=== PATIENT | female | born 1980 | race Two or more races ===

== ENCOUNTER 2019-08-24 13:44 | Emergency (ER) | payer MEDICAID ==
[~2019-08-24] VITALS: Ht 157.5 cm; Wt 113.0 kg
[2019-08-24 13:55] VITALS: BP 129/95
[2019-08-24 15:52] LABS: CHLORIDE 105 mEq/L (98-107)
[2019-08-24 16:21] LABS: HCG SCREEN NEGATIVE
[2019-08-24 17:22] LABS: BASOPHILS % 0.5 % (0.0-2.0); HEMATOCRIT. 40.8 % (36.0-48.0); HEMOGLOBIN. 13.5 g/dL (12.0-16.0); LYMPHOCYTES % 16.7 % (20.0-50.0); MEAN CORPUSCULAR HEMOGLOBIN 26.1 pg (28.0-32.0); MEAN CORPUSCULAR VOLUME 78.7 fL (81.0-99.0); MEAN PLATELET VOLUME 9.2 fl (7.4-10.4); MONOCYTES % 7.3 % (2.0-8.0); NEUTROPHILS % 72.5 % (40.0-76.0); PLATELET 287 x1000/uL (130-400); RED BLOOD CELL COUNT 5.18 mill/uL (4.2-5.4)
[2019-08-24 18:54] LABS: CLARITY URINE CLEAR (CLEAR); COLOR URINE YELLOW (YELLOW); KETONES URINE NEGATIVE (NEGATIVE); LEUKOCYTE ESTERASE URINE NEGATIVE (NEGATIVE); NITRITE URINE NEGATIVE (NEGATIVE); OCCULT BLOOD URINE NEGATIVE (NEGATIVE); PROTEIN URINE NEGATIVE (NEGATIVE); SPECIFIC GRAVITY URINE 1.022 (1.005-1.030); UROBILINOGEN URINE 0.2 E.U./dL (0.2-1.0)
== END 2019-08-24 19:16 | disposition home or self-care (01) ==
LOC: ER 13:44
DX: R10.31 Right lower quadrant pain (principal); Z98.890 Other specified postprocedural states
CPT/HCPCS: 36415; 74176; 76830; 76856; 80053; 81003; 81025; 84703; 85025; 99285

== ENCOUNTER 2020-02-14 21:23 | Emergency (ER) | payer MEDICAID, SELFPAY ==
[~2020-02-14] VITALS: Ht 162.6 cm; Wt 91.0 kg
[2020-02-14] MEDS ORDERED: MORPHINE SULFATE 2 MG/ML CPJ (NOT FOR IM USE) IV ONE (22:30)
[2020-02-14] MEDS ORDERED: ONDANSETRON HCL 4MG/2ML INJ IV ONE (22:30)
[2020-02-14] MEDS ORDERED: SODIUM CHLORIDE 0.9% 1,000 ML IV ONE (22:30)
[2020-02-14 22:57] LABS: BASOPHILS % 0.9 % (0.0-2.0); EOSINOPHILS % 4.9 % (0.0-5.0); HEMATOCRIT. 40.1 % (36.0-48.0); HEMOGLOBIN. 13.1 g/dL (12.0-16.0); LYMPHOCYTES % 26.6 % (20.0-50.0); MEAN CORPUSCULAR HEMOGLOBIN 26.2 pg (28.0-32.0); MEAN CORPUSCULAR VOLUME 79.9 fL (81.0-99.0); MEAN PLATELET VOLUME 9.3 fl (7.4-10.4); MONOCYTES % 8.7 % (2.0-8.0); NEUTROPHILS % 58.9 % (40.0-76.0); PLATELET 236 x1000/uL (130-400); RED BLOOD CELL COUNT 5.03 mill/uL (4.2-5.4); RED CELL DISTRIBUTION WIDTH 15.6 % (11.6-14.6)
[2020-02-14 23:03] VITALS: BP 136/87
[2020-02-14 23:04] LABS: CHLORIDE 107 mEq/L (98-107)
[2020-02-14 23:15] LABS: HCG SCREEN NEGATIVE
== END 2020-02-15 02:09 | disposition home or self-care (01) ==
LOC: ER 21:23
DX: R51.9 Headache, unspecified (principal); R11.2 Nausea with vomiting, unspecified; F17.290 Nicotine dependence, other tobacco product, uncomplicated; Z20.828 Contact with and (suspected) exposure to other viral communicable diseases; Z98.890 Other specified postprocedural states
CPT/HCPCS: 36415; 71045; 80053; 81025; 83690; 83880; 84484; 84703; 85025; 87635; 96361; 96374; 96375; 99284; 99406; C9803; J2270; J2405; J7030

== ENCOUNTER 2020-04-29 12:33 | Emergency (ER) | payer SELFPAY ==
[~2020-04-29] VITALS: Ht 165.1 cm; Wt 70.0 kg
[2020-04-29 12:56] VITALS: BP 126/79
[2020-04-29] MEDS ORDERED: ALBU6.7H9 INH (13:02)
== END 2020-04-29 13:21 | disposition home or self-care (01) ==
LOC: ER 12:33
DX: U07.1 COVID-19 (principal)
CPT/HCPCS: 87635; 99283; C9803; 99281

== ENCOUNTER 2021-01-29 08:36 | Emergency (ER) | payer MEDICAID, OTHER ==
[~2021-01-29] VITALS: Ht 162.6 cm; Wt 96.0 kg
[~2021-01-29 08:36] MED LIST: ALBU6.7H9 INH
[2021-01-29] MEDS ORDERED: KETOROLAC 30MG/ML VIAL IV ONE (09:00)
[2021-01-29 09:28] LABS: BASOPHILS % 0.4 % (0.0-2.0); EOSINOPHILS % 2.6 % (0.0-5.0); HEMATOCRIT. 37.3 % (36.0-48.0); HEMOGLOBIN. 12.4 g/dL (12.0-16.0); MEAN CORPUSCULAR HEMOGLOBIN 25.9 pg (28.0-32.0); MEAN CORPUSCULAR VOLUME 77.8 fL (81.0-99.0); MEAN PLATELET VOLUME 8.5 fl (7.4-10.4); MONOCYTES % 6.5 % (2.0-8.0); NEUTROPHILS % 68.5 % (40.0-76.0); PLATELET 267 x1000/uL (130-400); RED CELL DISTRIBUTION WIDTH 15.1 % (11.6-14.6)
[2021-01-29 09:32] LABS: CHLORIDE 107 mEq/L (98-107)
[2021-01-29 09:36] LABS: CLARITY URINE CLEAR (CLEAR); COLOR URINE YELLOW (YELLOW); KETONES URINE NEGATIVE (NEGATIVE); LEUKOCYTE ESTERASE URINE NEGATIVE (NEGATIVE); NITRITE URINE NEGATIVE (NEGATIVE); OCCULT BLOOD URINE 3+ (NEGATIVE); PH URINE 5.5 (4.5-8.0); PROTEIN URINE NEGATIVE (NEGATIVE); SPECIFIC GRAVITY URINE 1.025 (1.005-1.030); UROBILINOGEN URINE 0.2 E.U./dL (0.2-1.0)
[2021-01-29] MEDS ORDERED: ONDA4TAB5 PO (10:16)
[2021-01-29] MEDS ORDERED: TOPUD PO (10:16)
[2021-01-29 10:37] VITALS: BP 114/75
== END 2021-01-29 10:38 | disposition home or self-care (01) ==
LOC: ER 08:36
DX: R10.13 Epigastric pain (principal); Z98.890 Other specified postprocedural states
CPT/HCPCS: 36415; 76700; 80053; 81003; 83690; 85025; 93005; 96374; 99285; J1885

== ENCOUNTER 2021-04-23 11:25 | Emergency (ER) | payer SELFPAY ==
[~2021-04-23] VITALS: Ht 167.6 cm; Wt 100.0 kg
[~2021-04-23 11:25] MED LIST changes: +ONDA4TAB5 PO; +TOPUD PO
[2021-04-23] MEDS ORDERED: IBUPROFEN 600MG TABLET PO ONE (11:45)
[2021-04-23] MEDS ORDERED: KETOROLAC 30MG/ML VIAL IV STA (13:12)
[2021-04-23] MEDS ORDERED: SODIUM CHLORIDE 0.9% 1,000 ML IV ONE (13:15)
[2021-04-23 13:24] LABS: BASOPHILS % 0.5 % (0.0-2.0); EOSINOPHILS % 3.3 % (0.0-5.0); HEMATOCRIT. 39.5 % (36.0-48.0); HEMOGLOBIN. 13.2 g/dL (12.0-16.0); LYMPHOCYTES % 18.4 % (20.0-50.0); MEAN CORPUSCULAR HEMOGLOBIN 26.6 pg (28.0-32.0); MEAN CORPUSCULAR VOLUME 79.6 fL (81.0-99.0); MEAN PLATELET VOLUME 8.1 fl (7.4-10.4); MONOCYTES % 7.8 % (2.0-8.0); PLATELET 250 x1000/uL (130-400); RED BLOOD CELL COUNT 4.96 mill/uL (4.2-5.4); RED CELL DISTRIBUTION WIDTH 15.2 % (11.6-14.6)
[2021-04-23 13:34] LABS: CHLORIDE 105 mEq/L (98-107)
[2021-04-23 13:37] LABS: HCG SCREEN NEGATIVE
[2021-04-23] MEDS ORDERED: IBUP-2030 MT (16:22)
[2021-04-23 16:57] VITALS: BP 124/70
== END 2021-04-23 17:01 | disposition home or self-care (01) ==
LOC: ER 11:25
DX: R07.89 Other chest pain (principal); M25.511 Pain in right shoulder; Z98.890 Other specified postprocedural states
CPT/HCPCS: 36415; 71045; 73030; 80053; 81025; 84484; 84703; 85025; 93005; 96374; 99285; J1885; J7030

== ENCOUNTER 2021-05-21 08:42 | Emergency (ER) | payer SELFPAY ==
[~2021-05-21] VITALS: Ht 157.5 cm; Wt 100.0 kg
[~2021-05-21 08:42] MED LIST changes: +IBUP-2030 MT
[2021-05-21 09:45] LABS: BASOPHILS % 0.5 % (0.0-2.0); EOSINOPHILS % 5.3 % (0.0-5.0); HEMOGLOBIN. 10.3 g/dL (12.0-16.0); LYMPHOCYTES % 18.6 % (20.0-50.0); MEAN CORPUSCULAR HEMOGLOBIN 26.5 pg (28.0-32.0); MEAN PLATELET VOLUME 8.9 fl (7.4-10.4); MONOCYTES % 7.2 % (2.0-8.0); NEUTROPHILS % 68.4 % (40.0-76.0); PLATELET 180 x1000/uL (130-400)
[2021-05-21 09:50] LABS: CLARITY URINE CLEAR (CLEAR); COLOR URINE YELLOW (YELLOW); KETONES URINE NEGATIVE (NEGATIVE); LEUKOCYTE ESTERASE URINE NEGATIVE (NEGATIVE); NITRITE URINE NEGATIVE (NEGATIVE); OCCULT BLOOD URINE TRACE (NEGATIVE); PH URINE 7.5 (4.5-8.0); PROTEIN URINE NEGATIVE (NEGATIVE); SPECIFIC GRAVITY URINE 1.016 (1.005-1.030); UROBILINOGEN URINE 0.2 E.U./dL (0.2-1.0)
[2021-05-21 09:53] LABS: CHLORIDE 109 mEq/L (98-107)
[2021-05-21] MEDS ORDERED: ALBU18HF2 IH (11:00)
[2021-05-21] MEDS ORDERED: ACET650T37 MT (11:01)
[2021-05-21 11:50] VITALS: BP 143/71
== END 2021-05-21 12:03 | disposition home or self-care (01) ==
LOC: ER 08:42
DX: S60.221A Contusion of right hand, initial encounter (principal); S60.211A Contusion of right wrist, initial encounter; M51.36 Other intervertebral disc degeneration, lumbar region; J45.909 Unspecified asthma, uncomplicated; W01.0XXA Fall on same level from slipping, tripping and stumbling without subsequent striking against object, initial encounter; Y93.89 Activity, other specified; Y92.89 Other specified places as the place of occurrence of the external cause; D64.9 Anemia, unspecified; Z79.51 Long term (current) use of inhaled steroids; Z79.899 Other long term (current) drug therapy
CPT/HCPCS: 36415; 71045; 72100; 73100; 73120; 80053; 81003; 81025; 85025; 93005; 99285

== ENCOUNTER 2021-06-30 05:54 | Emergency (ER) | payer SELFPAY ==
[~2021-06-30] VITALS: Ht 167.6 cm; Wt 102.0 kg
[~2021-06-30 05:54] MED LIST changes: +ACET650T37 MT; +ALBU18HF2 IH
[2021-06-30 06:03] VITALS: BP 124/56
[2021-06-30] MEDS ORDERED: ACETAMINOPHEN 325MG TABLET PO STA (08:28)
[2021-06-30 08:57] LABS: BASOPHILS % 0.5 % (0.0-2.0); EOSINOPHILS % 3.8 % (0.0-5.0); HEMOGLOBIN. 12.9 g/dL (12.0-16.0); MEAN CORPUSCULAR HEMOGLOBIN 26.6 pg (28.0-32.0); MEAN CORPUSCULAR VOLUME 80.9 fL (81.0-99.0); MEAN PLATELET VOLUME 8.9 fl (7.4-10.4); NEUTROPHILS % 68.7 % (40.0-76.0); PLATELET 227 x1000/uL (130-400); RED BLOOD CELL COUNT 4.83 mill/uL (4.2-5.4); RED CELL DISTRIBUTION WIDTH 14.9 % (11.6-14.6)
[2021-06-30 09:03] LABS: CHLORIDE 106 mEq/L (98-107); HCG SCREEN NEGATIVE
[2021-06-30] MEDS ORDERED: IBUP-2030 PO (10:08)
== END 2021-06-30 10:33 | disposition home or self-care (01) ==
LOC: ER 05:54
DX: N94.6 Dysmenorrhea, unspecified (principal); E11.9 Type 2 diabetes mellitus without complications; Z98.890 Other specified postprocedural states
CPT/HCPCS: 36415; 76830; 76856; 80053; 84703; 85025; 99284